=== PATIENT | male | born 1985 | race Caucasian/White ===

== ENCOUNTER 2020-10-03 20:33 | Emergency (ER) | payer SELFPAY ==
[~2020-10-03] VITALS: Ht 172.7 cm; Wt 63.6 kg
[2020-10-03 22:46] VITALS: BP 129/66
== END 2020-10-03 23:10 | disposition home or self-care (01) ==
LOC: ER 20:33
DX: Z20.822 Contact with and (suspected) exposure to COVID-19 (principal); R06.02 Shortness of breath
CPT/HCPCS: 36415; 71045; 80053; 80307; 85025; 96360; 99284; J7030